=== PATIENT | male | born 1965 | race Native Hawaiian/Other Pacific Islander ===

== ENCOUNTER 2021-11-24 10:16 | Emergency (ER) | payer OTHER ==
[~2021-11-24] VITALS: Ht 157.5 cm; Wt 114.3 kg
[2021-11-24 10:28] VITALS: BP 121/77
[2021-11-24] MEDS ORDERED: KETOROLAC 30 MG/ML VIAL IM ONE (11:30)
--- NOTE | 2021-11-24 12:09 | NUR ---
56 y/o male bib self, pt presents to ed with c/o body aches, sore throat, subjective fever, chills for 4 days. pt states he has been having chronic knee pain for 5 years on right knee. denies any new trauma or fall. pt is also c/o dysuria for 2 months. a&ox4, indian speaking, ambulatory with steady gait. lungs clear bl, heart sounds even and regular. ermd made aware of pt. pmh: denies nka med: denies
--- NOTE | 2021-11-24 12:18 | NUR ---
mc swabbed at this time
[2021-11-24] MEDS ORDERED: CIPR500T4 PO (12:42)
[2021-11-24] MEDS ORDERED: IBUP-2218 PO (12:42)
[2021-11-24 13:16] VITALS: BP 121/77
--- NOTE | 2021-11-24 13:18 | NUR ---
Patient discharged with v/s stable. Written and verbal after care instructions given and explained. Patient alert, oriented and verbalized understanding of instructions. Ambulatory with steady gait. All questions addressed prior to discharge. ID band removed. Patient advised to follow up with PMD. Rx of ibuprofen, ciprofloxacin (sent) given. Patient educated on indication of medication including possible reaction and side effects. Opportunity to ask questions provided and answered. work note given
== END 2021-11-24 13:16 | disposition home or self-care (01) ==
LOC: MED 10:16
DX: N39.0 Urinary tract infection, site not specified (principal); Z20.822 Contact with and (suspected) exposure to COVID-19
CPT/HCPCS: 81002; 87426; 96372; 99283; J1885